=== PATIENT | male | born 1970 | race Caucasian/White ===

== ENCOUNTER 2022-11-15 19:59 | Emergency (ER) | payer OTHER ==
[~2022-11-15] VITALS: Ht 180.3 cm; Wt 99.0 kg
[2022-11-15 20:05] VITALS: BP 126/88
[2022-11-15] MEDS ORDERED: BP MEDICINE (20:14)
[2022-11-15] MEDS ORDERED: GERD MED (20:14)
[2022-11-15 20:30] VITALS: BP 130/89
[2022-11-15 20:40] LABS: BASO% 0.2 % (0-3); EOS% 1.4 % (0-8); HEMOGLOBIN 14.3 g/dl (14.0-18.0); IMMATURE GRANULOCYTES 0.2 % (0.0-5.0); LYMPH% 14.2 % (15-41); MEAN CELL VOLUME 87.3 fL CALC (80.0-100.0); MEAN CORPUSCULAR HGB 28.4 pG CALC (26.0-32.0); MEAN CORPUSCULAR HGB CONC 32.5 g/dL CAL (32.0-36.0); MONO% 5.8 % (2-13); NEUT# 6.58 thou/uL (1.82-7.42); NEUT% 78.2 % (42-76); RED BLOOD COUNT 5.04 mill/uL (4.70-6.10); RED CELL DISTRI WIDTH 12.6 % (11.5-15.5)
[2022-11-15 21:00] VITALS: BP 122/76
[2022-11-15 21:31] VITALS: BP 122/77
[2022-11-15 22:00] VITALS: BP 121/74
[2022-11-15 23:51] VITALS: BP 121/74
== END 2022-11-16 00:10 | disposition home or self-care (01) | DRG 605 ==
LOC: ED 19:59
PROVIDERS: Emergency Medicine
DX: S50.812A Abrasion of left forearm, initial encounter (principal); S93.402A Sprain of unspecified ligament of left ankle, initial encounter; S90.02XA Contusion of left ankle, initial encounter; I10 Essential (primary) hypertension; V86.55XA Driver of 3- or 4- wheeled all-terrain vehicle (ATV) injured in nontraffic accident, initial encounter; Y93.K9 Activity, other involving animal care; Y92.73 Farm field as the place of occurrence of the external cause

== ENCOUNTER 2024-09-05 09:58 | Day surgery (SDC) | payer BC ==
[~2024-09-05] VITALS: Ht 180.3 cm; Wt 104.3 kg
[~2024-09-05 09:58] MED LIST: ALLERGY RE50 MCG/ACT; AMLODIPINE BESYL5 MG PO; ASPIRIN 81 LOW81 MG PO; B121000 MC1 PO; BP MEDICINE; CHOL; COZAAR100 MG PO; CRESTOR10 MG PO; ESOMEPRAZOLE MA40 MG PO; GERD MED; LOSARTAN POTASS50 MG PO; OMEPRAZOLE DR40 MG PO; ZYRTEC10 MG PO
[2024-09-05] MEDS ORDERED: SODIUM CHLORIDE 0.9% 100 ML IV ONE (10:11)
[2024-09-05] MEDS ORDERED: ceFAZolin Sodium 2 GM/VIAL SDV ONE (10:11)
[2024-09-05] MEDS ORDERED: FAMOTIDINE 10MG/ML 2ML SDV IV ONE (10:11)
[2024-09-05] MEDS ORDERED: SODIUM CHLORIDE 0.9% 1,000 ML IV ONE ×2 (10:12→13:10)
[2024-09-05] MEDS ORDERED: ISOVUE-300 (Iopamidol) 100 ML SDV IV ONE (11:24)
[2024-09-05] MEDS ORDERED: STERILE WATER FOR IRRIGATION 500 ML BTL IR ONE (11:43)
[2024-09-05] MEDS ORDERED: SODIUM CHLORIDE 1,000 ML BTL IR ONE (11:43)
[2024-09-05] MEDS ORDERED: LIDOcaine HCl 1% (Local Anesth.) 20 ML VIAL ONE (11:43)
[2024-09-05] MEDS ORDERED: PERCOCET 5/325M1 TAB PO (12:47)
[2024-09-05 14:20] VITALS: BP 144/96
[2024-09-05] MEDS ORDERED: KETOROLAC TROMETHAMINE 30 MG/ML SDV IV ONE (15:27)
[2024-09-05] MEDS ORDERED: SUGAMMADEX SODIUM 200 MG/2 ML SDV IV ONE (15:27)
[2024-09-05] MEDS ORDERED: LIDOCAINE HCL 2% 2ML SDV IV ONE (15:27)
[2024-09-05] MEDS ORDERED: SUCCINYLCHOLINE CHLORIDE 20 MG/ML 10ML VIAL IV ONE (15:27)
[2024-09-05] MEDS ORDERED: ONDANSETRON HCl 4 MG/2 ML SDV IV ONE (15:27)
== END 2024-09-05 14:15 | disposition home or self-care (01) | DRG 419 ==
LOC: ORM 09:58
PROVIDERS: ATTEND Surgery
PROC: 0FT44ZZ Resection of Gallbladder, Percutaneous Endoscopic Approach (ICD-10-PCS; principal; 2024-09-05)
PROC: BF001ZZ Plain Radiography of Bile Ducts using Low Osmolar Contrast (ICD-10-PCS; 2024-09-05)
DX: K80.12 Calculus of gallbladder with acute and chronic cholecystitis without obstruction (principal); I10 Essential (primary) hypertension; K21.9 Gastro-esophageal reflux disease without esophagitis; Z01.818 Encounter for other preprocedural examination; K80.00 Calculus of gallbladder with acute cholecystitis without obstruction; Z11.52 Encounter for screening for COVID-19
CPT/HCPCS: J0690; J1100; J2405; Q9966